=== PATIENT | female | born 1945 | race Caucasian/White ===

== ENCOUNTER 2018-06-30 18:05 | Observation (INO) | payer MEDICARE ==
[2018-06-30] MEDS ORDERED: Ondansetron PF 4 MG/2 ML Vial ONE (18:25)
[2018-06-30 19:01] LABS: #Basophils 0.1 thou/uL (0.0-0.2); #Eosinphils 0.1 thou/uL (0.0-0.7); #Lymphocytes 1.2 thou/uL (1.20-3.40); #Monocytes 0.9 thou/uL (0.11-0.59); #Neutrophils 11.1 thou/uL (1.40-6.50); %Basophils 0.5 % (0.0-1.0); %Eosinophils 0.6 % (0.0-10.0); %Lymphocytes 8.8 % (21.0-51.0); %Neutrophils 83.1 % (42.0-75.0); Hemoglobin 15.5 g/dL (12.0-16.0); Mean Corpuscular HGB CONC 32.8 g/dL (32.0-36.0); Mean Corpuscular Hemoglobin 30.8 pg (27.0-31.0); Mean Corpuscular Volume 93.9 fL (78.0-98.0); Mean Platelet Volume 8.3 fL (7.4-10.4); Platelet Count 183 thou/uL (130-400); RBC Distribution Width 13.1 % (11.5-14.5); Red Blood Cell (RBC) Count 5.02 mill/uL (4.20-5.40); White Blood Cell (WBC) Count 13.4 thou/uL (4.8-10.8)
--- NOTE | 2018-06-30 19:02 | RAD ---
PORTABLE CHEST ONE VIEW: 06/30/18 at 6:48 p.m. HISTORY: Cough, vomiting, nausea. FINDINGS: The heart size is borderline. There is evidence of old granulomatous disease. The lungs are well exp anded without focal areas of consolidation, pneumothoraces, parker pulmonary edema or pleural effusio ns. IMPRESSION: No acute process. POS: [facility]
[2018-06-30 19:39] LABS: ALT (SGPT) 18 U/L (8-55); AST (SGOT) 32 U/L (5-34); Albumin 3.8 g/dL (3.4-4.8); Alkaline Phosphatase 110 U/L (40-150); Anion Gap 14 mmol/L (10-20); BUN (Urea Nitrogen) 8 mg/dL (9.8-20.1); Bilirubin, Total 0.4 mg/dL (0.2-1.2); Calc. Creatinine Clearance 0 mL/min (70-130); Carbon Dioxide 28 mmol/L (23-31); Chloride 104 mmol/L (98-107); Estimated GFR-MDRD 85; Globulin 3.2 g/dL (2.4-3.5); Glucose 88 mg/dL (83-110); Lipase 37 U/L (8-78); Sodium 142 mmol/L (136-145)
[2018-06-30 19:48] LABS: CKMB 8.8 ng/mL (0-6.6)
[2018-06-30 20:22] LABS: Bilirubin Negative (Negative); Blood, Urine Small (Negative); Clarity CLEAR (Clear); Glucose, Urine (Dipstick) Negative (Negative); Leukocyte Negative (Negative); Nitrite Negative (Negative); Protein, Urine (Dipstick) 30 mg/dL (Neg-Trace); Specific Gravity, Urine 1.015 (1.002-1.036); Urobilinogen 0.2 mg/dL (0.2-1.0); pH, Urine 5.5 (5.0-9.0)
[2018-06-30 20:25] LABS: Bacteria/HPF None Seen HPF (None Seen); Hyaline Casts/LPF 4-6 HYALINE CAST LPF (0-3 Hyaline); Pathc Cast-AUWi Flag 0.67 (0-2.49); RBC/HPF 0-3 HPF (0-3); Squamous Epithelial 0-3 HPF (0-3); WBC/HPF 0-3 HPF (0-3)
[2018-06-30] MEDS ORDERED: Aspirin Chewable 81 MG TAB ONE (20:39)
[2018-06-30] MEDS ORDERED: Acetaminophen 325 MG TAB PO PRN (22:14)
[2018-06-30] MEDS ORDERED: Ondansetron ODT 4 MG TAB PO PRN (22:14)
[2018-06-30] MEDS ORDERED: Nitroglycerin 0.4 MG TAB (25 Tab Bottle) PO PRN (22:16)
--- NOTE | 2018-06-30 23:04 | PDOC.FPRHP ---
- History of Present Illness Chief Complaint: N/V History of Present Illness: 73 yo F with PMH COPD presents with daughter for sudden onset weakness, N/V. Patient is from [place] and visiting daughter in town. She previously felt well and had sudden weakness, N/V, and fell at 16:30. Had urine and stool incontinence, felt clammy at that time. Did not lose consciousness or hit head. Patient was weak and family could not get her up so EMS called. Patient denies CP, SOB, fever. Now she feels at baseline apart from weakness. Had BP in 80s which corrected with fluids in ED. History of COPD with 3 home inhalers. Denies dyspnea, cough, increased sputum production. Is supposed to be on 2L NC at home but it not compliant. History of watery diarrhea for several months, 3/day. ED Course: 1.5L NS, ASA, duoneb, zofran - Allergies/Adverse Reactions Allergies Allergy/AdvReac Type Severity Reaction Status Date / Time clarithromycin [From Biaxin] Allergy Unverified 06/30/18 23:10 codeine Allergy Unverified 06/30/18 23:10 - Home Medications Medication Instructions Recorded Confirmed Type Benzonatate 200 mg PO TID 07/01/18 07/01/18 History Buspirone HCl [busPIRone HCl] 10 mg PO BID 07/01/18 07/01/18 History Cholecalciferol (Vitamin D3) 2,000 unit PO DAILY 07/01/18 07/01/18 History [Vitamin D3] Diclofenac Sodium 75 mg PO DAILY 07/01/18 07/01/18 History Escitalopram Oxalate 10 mg PO DAILY 07/01/18 07/01/18 History Leflunomide 10 mg PO DAILY 07/01/18 07/01/18 History traZODone HCl [Trazodone HCl] 50 mg PO DAILY 07/01/18 07/01/18 History - History PMHx: COPD, depression/anxiety PSHx: cholecystectomy, L shoulder FHx: Mom-CAD, DM. Father-[place] Social: Current smoker, 1PPD for >50yrs. No alcohol or drug use. - Review of Systems General: reports: fatigue. denies: fever/chills Eyes: denies: vision changes ENT: denies: nasal congestion Respiratory: denies: cough, congestion, shortness of breath Cardiovascular: denies: chest pain, palpitation, edema Gastrointestinal: reports: nausea, vomiting, diarrhea. denies: abdominal pain Genitourinary: reports: incontinence. denies: dysuria Skin: denies: rashes Musculoskeletal: denies: pain, swelling Neurological: reports: weakness. denies: numbness, syncope Psychological: reports: anxiety, depression - Vital signs BP: 106/72, Pulse: 86, Resp: 20, Pain: 0, O2 sat: 95 on 2L Oxygen, Temp 97.0, Weight 70 kg - Physical Exam Constitutional: NAD, awake, alert and oriented HEENT: normocephalic and atraumatic, PERRLA, grossly normal vision, grossly normal hearing Heart: RRR, normal S1/S2, pulses present, no edema Lungs: no respiratory distress, other (diffuse rhonchi and expiratory wheeze) Abdomen: soft, non-tender, bowel sounds present Musculoskeletal: normal structure, normal tone Neurological: no focal deficit Skin: no rash/lesions, good turgor Heme/Lymphatic: no unusual bruising or bleeding Psychiatric: normal mood and affect FMR H&P: Results - Labs Result Diagrams: 07/01/18 02:30 07/01/18 02:30 Lab results: WBC 13.4 thou/uL (4.8-10.8) H 06/30/18 18:46 Hgb 15.5 g/dL (12.0-16.0) 06/30/18 18:46 Hct 47.2 % (36.0-47.0) H 06/30/18 18:46 MCV 93.9 fL (78.0-98.0) 06/30/18 18:46 Plt Count 183 thou/uL (130-400) 06/30/18 18:46 Neutrophils % 83.1 % (42.0-75.0) H 06/30/18 18:46 Sodium 142 mmol/L (136-145) 06/30/18 18:46 Potassium 4.0 mmol/L (3.5-5.1) 06/30/18 18:46 Chloride 104 mmol/L (98-107) 06/30/18 18:46 Carbon Dioxide 28 mmol/L (23-31) 06/30/18 18:46 BUN 8 mg/dL (9.8-20.1) L 06/30/18 18:46 Creatinine 0.68 mg/dL (0.6-1.1) 06/30/18 18:46 Glucose 88 mg/dL (83-110) 06/30/18 18:46 Lactic Acid 1.8 mmol/L (0.5-2.2) 06/30/18 18:46 Calcium 9.0 mg/dL (7.8-10.44) 06/30/18 18:46 Total Bilirubin 0.4 mg/dL (0.2-1.2) 06/30/18 18:46 AST 32 U/L (5-34) 06/30/18 18:46 ALT 18 U/L (8-55) 06/30/18 18:46 Alkaline Phosphatase 110 U/L (40-150) 06/30/18 18:46 CK-MB (CK-2) 8.8 ng/mL (0-6.6) H* 06/30/18 18:46 B-Natriuretic Peptide 56.1 pg/mL (0-100) 06/30/18 20:02 Serum Total Protein 7.0 g/dL (6.0-8.3) 06/30/18 18:46 Albumin 3.8 g/dL (3.4-4.8) 06/30/18 18:46 Lipase 37 U/L (8-78) 06/30/18 18:46 Urine Ketones Negative mg/dL (Negative) 06/30/18 19:46 Urine Blood Small (Negative) H 06/30/18 19:46 Urine Nitrite Negative (Negative) 06/30/18 19:46 Ur Leukocyte Esterase Negative (Negative) 06/30/18 19:46 Urine RBC 0-3 HPF (0-3) 06/30/18 19:46 Urine WBC 0-3 HPF (0-3) 06/30/18 19:46 Ur Squamous Epith Cells 0-3 HPF (0-3) 06/30/18 19:46 Urine Bacteria None Seen HPF (None Seen) 06/30/18 19:46 FMR H&P: A/P - Problem List (1) Elevated troponin Current Visit: Yes Status: Acute Code(s): R74.8 - ABNORMAL LEVELS OF OTHER SERUM ENZYMES (2) Viral gastroenteritis Current Visit: Yes Status: Acute Code(s): A08.4 - VIRAL INTESTINAL INFECTION , UNSPECIFIED (3) Leukocytosis Current Visit: Yes Status: Acute Code(s): D72.829 - ELEVATED WHITE BLOOD CELL COUNT, UNSPECIFIED (4) COPD (chronic obstructive pulmonary disease) Current Visit: Yes Status: Chronic (5) Depression Current Visit: Yes Status: Chronic Code(s): F32.9 - MAJOR DEPRESSIVE DISORDER, SINGLE EPISODE, UNSPECIFIED - Plan Indeterminate troponin - No chest pain though N/V could be atypical ACS presentation - trop 0.146, continue to trend - Heart score 3 - FLP pending - EKG with no ischemic changes, did show possible atrial pacing but patient does not have pacemaker. Will repeat. - will order stress for am Viral gastroenteritis - WBC 13, afebrile, no tachycardia or tachypnea - c diff, stool studies pending - zofran prn - s/p 1.5L in ED, continue LR @ 110 Leukocytosis - WBC 13 with high neutrophils - possibly 2/2 above as no other infectious source suspected at this time. UA negative - recheck in am COPD - CXR with no acute changes - no tachypnea, increased cough or sputum. On 2L which is recommended for home use, though pt not compliant - duonebs ciaran and prn Depression/anxiety - continue home escitalopram, buspirone, trazodone Tobacco abuse - nicotine patch and encourage cessation Diet: NPO after midnight Ppx: Lovenox Dispo: admit to telemetry for observation PCP: [facility], in [place] Case discussed with Dr. Ascencio FMR H&P: Upper Level - Pertinent history 73 yo F with PMHx of COPD presents with daughter after a fall. She cannot recall many details of the fall but had been having n/v and felt weak and fell. Family could not get her up. She reports that as she was vomiting she also experienced urine and stool incontinence. Did not hit her head or lose consciousness. Denies any chest pain, worsening cough. Granddaughter with recent GI bug otherwise no sick contacts. She also reports non-bloody chronic diarrhea x3 months. - Pertinent findings VSS Labs and imaging reviewed Gen: awake, alert, oriented x3 HEENT: NCAT, slightly dry MM, old scar from trach as infant CV: RRR, no murmur noted but difficult to auscultate due to diffuse wheezing RESP: diffuse expiratory wheezing ABD: soft, NTND, bowel sounds present EXT: no edema, pulses 2+ throughout - Plan Date/Time: 06/30/182303 73 yo F who presents s/p fall with concern for indeterminate troponin necessitating ACS rule-out 1. Indeterminate troponin - Continue to trend - HEART score 4 - FLP ordered - TSH if EKG persistently abnormal 2. Viral gastroenteritis - WBC 13, afebrile, no tachycardia or tachypnea - Stool studies pending - s/p 1.5L in ED, continue LR @ [address] Barbosa's note for remainder of A/P I, Lynsey Melgar MD, PGY-3, have evaluated this patient and agree with findings/ plan as outlined by business intern resident. Pertinent changes/additions are listed here. Addendum - Attending - Attending Attestation Date/Time: 06/30/182317 I personally evaluated the patient and discussed the management with Dr. Barbosa I agree with the History, Examination, Assessment and Plan documented above with any addition or exceptions noted below. 73 yo female with COPD visiting local family from [place] recently exposed to child with AGE. Patient with episode of weakness,nausea and repeated emesis today and recent non bloody diarrhea. Patient brought in to ER with weakness and most likely AGE found with indeterminate troponin. Patient with initial hypotension with good response to IV fluid resuscitation. PMHX Long standing Oxygen dependant COPD on advair,symbicort and albuterol with continued tobacco abuse. Patient s/p cholestectomy and history of tracheostomy as toddler for Diptheria. Admit for supportive care and r/o ACS Care plan and pending clearance for anticipated travel discussed with patient and family.
[2018-07-01 02:07] LABS: CKMB 11.2 ng/mL (0-6.6)
[2018-07-01 02:39] VITALS: BMI 28.7
[2018-07-01 02:42] LABS: #Eosinphils 0.1 thou/uL (0.0-0.7); #Lymphocytes 1.7 thou/uL (1.20-3.40); #Monocytes 0.5 thou/uL (0.11-0.59); #Neutrophils 5.7 thou/uL (1.40-6.50); %Basophils 0.5 % (0.0-1.0); %Lymphocytes 21.3 % (21.0-51.0); %Monocytes 6.5 % (0.0-10.0); %Neutrophils 70.7 % (42.0-75.0); Hemoglobin 13.7 g/dL (12.0-16.0); Mean Corpuscular HGB CONC 32.2 g/dL (32.0-36.0); Mean Corpuscular Hemoglobin 30.3 pg (27.0-31.0); Mean Corpuscular Volume 93.9 fL (78.0-98.0); Mean Platelet Volume 8.2 fL (7.4-10.4); Platelet Count 170 thou/uL (130-400); RBC Distribution Width 13.1 % (11.5-14.5); Red Blood Cell (RBC) Count 4.53 mill/uL (4.20-5.40); White Blood Cell (WBC) Count 8.1 thou/uL (4.8-10.8)
[2018-07-01] MEDS: Lactated Ringer's 1,000 ML IV SCH ×3 (02:58→17:55)
[2018-07-01 03:05] LABS: Anion Gap 9 mmol/L (10-20); BUN (Urea Nitrogen) 8 mg/dL (9.8-20.1); Calc. Creatinine Clearance 91 mL/min (70-130); Calcium 8.2 mg/dL (7.8-10.44); Carbon Dioxide 28 mmol/L (23-31); Cardiac Risk 5.6 (Less than 4.5); Chloride 108 mmol/L (98-107); Cholesterol 161 mg/dl (< 200 Desired); Estimated GFR-MDRD Greater than 90; Glucose 101 mg/dL (83-110); HDL Cholesterol 29 mg/dL (>60 Neg Risk); LDL Cholesterol, Calculated 116 mg/dL; Sodium 141 mmol/L (136-145); Triglycerides 80 mg/dL (Less than 150)
--- NOTE | 2018-07-01 06:12 | PDOC.FM ---
- Subjective Subjective: Pt reports this morning that she remembered choking on her saliva prior to passing out and vomiting. She believes this was the insulting event. Overnight she denies CP, SOB, nausea, or vomiting. She reports a flight to [place] tomorrow that she hopes she can make. - Objective MAR Reviewed: Yes Vital Signs & Weight: Vital Signs (12 hours) Temp Pulse Resp BP Pulse Ox 07/01/18 05:57 95 07/01/18 05:56 80 16 95 07/01/18 04:37 98.2 F 73 18 107/60 93 L 07/01/18 04:11 94 L 07/01/18 04:10 15 94 L 07/01/18 01:45 98.4 F 75 18 118/69 95 Weight Weight 71.259 kg I&O: 06/29/18 06/30/18 07/01/18 06:59 06:59 06:59 Intake Total 200 Balance 200 Result Diagrams: 07/01/18 02:30 07/01/18 02:30 Phys Exam - Physical Examination Constitutional: NAD HEENT: moist MMs Neck: no JVD, full ROM Good air movement, slight wheezing and basilar crackles Cardiovascular: RRR, no significant murmur Gastrointestinal: soft, non-tender, no distention, positive bowel sounds Musculoskeletal: no edema, pulses present Neurological: non-focal, moves all 4 limbs Psychiatric: A&O x 3 Skin: normal turgor, cap refill <2 seconds Dx/Plan (1) Elevated troponin Code(s): R74.8 - ABNORMAL LEVELS OF OTHER SERUM ENZYMES Status: Acute (2) Leukocytosis Code(s): D72.829 - ELEVATED WHITE BLOOD CELL COUNT, UNSPECIFIED Status: Acute (3) Viral gastroenteritis Code(s): A08.4 - VIRAL INTESTINAL INFECTION, UNSPECIFIED Status: Acute (4) COPD (chronic obstructive pulmonary disease) Status: Chronic (5) Depression Code(s): F32.9 - MAJOR DEPRESSIVE DISORDER, SINGLE EPISODE, UNSPECIFIED Status : Chronic - Plan Plan: This is a 73 yo female with a pmh of COPD and depression Indeterminate troponin, likely due to nausea/vomiting -As high as 0.229, no previous labs to compare to -With weakness and N/V, concerning for ACS vs -Stress and Echo this AM Viral gastroenteritis -c diff pending -zofran pending -Continue LR Leukocytosis, resolved COPD -No acute changes on cxr -Nothing suggestive of exacerbation -O2 2L nc at home, noncompliant -PRN duonebs Depression/anxiety -Continue home escitalopram, buspirone, trazodone Tobacco abuse -Nicotine patch, encourage cessation Addendum - Attending - Attending Attestation Date/Time: 07/01/18 [id number] I personally evaluated the patient and discussed the management with Dr. Edwards I agree with the History, Examination, Assessment and Plan documented above with any addition or exceptions noted below. Further rec pending stress test today Patient feeling well she denies further N/ V.
[2018-07-01] MEDS ORDERED: Regadenoson 0.4 MG/5 ML SYRINGE ONE (08:25)
[2018-07-01] MEDS ORDERED: Nicotine 14 MG PATCH TD SCH (09:00)
[2018-07-01] MEDS ORDERED: Escitalopram Oxalate 10 mg Tablet PO SCH ×2 (09:00→21:00)
[2018-07-01] MEDS ORDERED: busPIRone HCl 10 MG TAB PO SCH (09:00)
[2018-07-01] MEDS ORDERED: Leflunomide 10 mg Tablet PO SCH ×2 (09:00→21:00)
[2018-07-01] MEDS ORDERED: traZODone HCl 50 MG TAB PO SCH ×2 (09:00→21:00)
[2018-07-01] MEDS ORDERED: Enoxaparin Sodium 40 MG/0.4 ML SYRINGE SC SCH (09:00)
[2018-07-01] MEDS ORDERED: Promethazine HCl 25 MG/ML VIAL IM PRN (12:53)
[2018-07-01 15:46] VITALS: BP 145/67; TEMP 97.5
[2018-07-01] MEDS: Benzonatate 100 MG CAP PO SCH (16:41)
--- NOTE | 2018-07-01 17:52 | NM ---
CARDIAC SPECT 07/01/18 HISTORY: 73-year-old female with acute coronary syndrome, COPD, syncope, dyspnea, chest pain. TECHNIQUE: A myocardial perfusion scan is performed using the single isotope one day protocol with technetium 99 m-Sestamibi. 9 millicuries administered intravenously for rest exam followed by 31 millicuries for th e stress study. Pharmacologic test with Lexiscan was monitored and interpreted by Dr. Vasques. FINDINGS: There is better tracer distribution on the stress images compared to the rest without fixed or revers ible defects. Gated SPECT LVEF: 64%. Wall motion exam: Normal. IMPRESSION: Normal myocardial perfusion scan. POS: [facility]
--- NOTE | 2018-07-02 21:18 | DIS ---
DATE OF ADMISSION: 06/30/2018 DATE OF DISCHARGE: 07/01/2018 ADMITTING ATTENDING: Dr. Monty Ascencio. DISCHARGE ATTENDING: Dr. Monty Ascencio. RESIDENT: Waldo Edwards DO PROCEDURES: 1. Nuclear stress test showing normal myocardial perfusion scan. 2. Chest x-ray showing no acute processes. CONSULTS: None. PRIMARY DIAGNOSES: 1. Indeterminate troponin, likely due to demand ischemia from nausea and vomiting. 2. Nausea and vomiting, likely secondary to gastroenteritis versus aspiration. 3. Leukocytosis, likely secondary to stress reaction from above. SECONDARY DIAGNOSES: Chronic obstructive pulmonary disease, depression/anxiety/tobacco abuse. DISCHARGE MEDICATIONS: 1. Phenergan 25 mg p.o. q.6 hours p.r.n. nausea. 2. Benzonatate 200 mg p.o. t.i.d. 3. Buspirone 10 mg p.o. b.i.d. 4. Vitamin D3 2000 units p.o. daily. 5. Diclofenac 75 mg p.o. daily. 6. Escitalopram 10 mg p.o. daily. 7. Trazodone 50 mg p.o. daily. DISCONTINUED MEDICATIONS: None. BRIEF HISTORY OF PRESENT ILLNESS/HOSPITAL COURSE: This is a 73-year-old female with past medical history as above, who presented with onset of weakness, nausea, vomiting. She reports that she fell and has sudden weakness, nausea, vomiting. Has stool and urine incontinence. States she did not lose consciousness or hit her head at that point. The patient was admitted due to concern of cardiac etiology due to indeterminate troponins as well as admitted for a systolic in the 80s initially with correction of fluids. During the patient's hospital stay, the patient further disclosed that she had choked on her own saliva and that is what initiated her nausea and vomiting. She also reports watery diarrhea for several months with couple of times a day. During her stay, the patient underwent a stress test as above. Had improvement in her nausea and vomiting. Prior to discharge, the patient did have some vomiting following the stress test corrected with Phenergan. DISPOSITION: Stable. DISCHARGE INSTRUCTIONS: 1. Location: Home to [place]. 2. Activity: As tolerated. 3. Diet: Heart healthy. 4. Follow up with PCP in [place] in 1-2 weeks. Job ID: [id number] [facility]
== END 2018-07-01 19:33 | disposition home or self-care (01) ==
LOC: ERS 18:05 → INTOOBSV 20:46 → ERHOLD 20:46 → 2NO 07-01 01:41
PROVIDERS: ADMIT Family Medicine; ATTEND Family Medicine
DX: R53.1 Weakness (principal); R11.2 Nausea with vomiting, unspecified; R74.8 Abnormal levels of other serum enzymes; J44.9 Chronic obstructive pulmonary disease, unspecified; F17.210 Nicotine dependence, cigarettes, uncomplicated; A08.4 Viral intestinal infection, unspecified; D72.829 Elevated white blood cell count, unspecified; F32.9 Major depressive disorder, single episode, unspecified; R19.7 Diarrhea, unspecified; R32 Unspecified urinary incontinence; Z88.5 Allergy status to narcotic agent; Z88.1 Allergy status to other antibiotic agents; Z79.899 Other long term (current) drug therapy; Z79.1 Long term (current) use of non-steroidal anti-inflammatories (NSAID); W19.XXXA Unspecified fall, initial encounter
CPT/HCPCS: 51701; 71045; 78452; 80048; 80053; 80061; 82553 ×2; 83605; 83630; 83690; 83880; 84484 ×3; 85025 ×2; 87040; 87045; 87046; 87086; 87324; 87449 ×2; 87899 ×2; 93005 ×2; 93017; 94640 ×3; 94760 ×2; 96361 ×2; 96372; 96374; 99285; A9500; G0378 ×2; 36415; 81003; 81015; 93010; J1650; J2405; J2550; J2785; J7620; Q0162